=== PATIENT | female | born 1950 ===

== ENCOUNTER 2018-07-15 09:46 | Outpatient (REF) | payer OTHER, SELFPAY ==
[2018-07-15 19:46] LABS: Bilirubin Negative (Negative); Blood Negative (Negative); Clarity Clear; Glucose Negative (Negative); HCT 46.7 % (36.0-46.0); HGB 15.8 g/dL (12.0-15.5); Ketones Negative (Negative); Leukocyte Esterase Negative (Negative); Mean Corp. HGB Concentration 33.8 g/dL (32.0-36.0); Mean Corpuscular Hemoglobin 33.6 pg (27.0-33.0); Mean Corpuscular Volume 99.4 fL (80-95); Mean Platelet Volume 10.6 fL (8.0-11.0); Nitrite Negative (Negative); Platelet Count 258 x1000/uL (130-400); RBC Distribution Width 13.3 % (11.7-14.6); Specific Gravity 1.015 (1.005-1.025); Urobilinogen 0.2 EU/dL (Up TO 0.2); White Blood Cell Count 6.21 k/cumm (4.4-10.8); pH 6.5 (5-8)
[2018-07-15 20:05] LABS: ALT 25 U/L (12-78); AST 25 U/L (15-37); Glucose 83 mg/dL (70-100); TSH 1.23 uIU/mL (0.358-3.74)
[2018-07-16 17:48] LABS: Cholesterol 210 mg/dL (50-200); HDL Cholesterol 104 mg/dL (40-60); LDL CHOLESTEROL 86 mg/dL (<100); Triglyceride 64 mg/dL (30-150); Vitamin B12 254 pg/mL (193-986)
[2018-07-17 10:09] LABS: Folate 10.9 ng/ml
== END 2018-07-15 10:06 ==
LOC: NCHCN 09:46
PROVIDERS: PCP Nurse Practitioner Family; Visit Provider Nurse Practitioner Family
DX: R53.83 Other fatigue (principal); R68.89 Other general symptoms and signs; F17.200 Nicotine dependence, unspecified, uncomplicated
CPT/HCPCS: 80061; 82947; 83721; 85027; 81003; 82607; 82746; 84443; 84450; 84460

== ENCOUNTER 2020-04-21 20:42 | Outpatient (REF) | payer OTHER, SELFPAY ==
[2020-04-27 01:49] LABS: SARS-CoV-2 RNA Undetected (Undetected); SARS-CoV-2 Specimen Source Nasal
== END 2020-04-21 21:02 ==
LOC: NCHCN 20:42
PROVIDERS: PCP Nurse Practitioner Family; Visit Provider Nurse Practitioner Family
DX: Z20.828 Contact with and (suspected) exposure to other viral communicable diseases (principal)
CPT/HCPCS: U0003

== ENCOUNTER 2021-02-08 12:32 | Outpatient (REF) | payer OTHER, SELFPAY ==
[2021-02-10 17:33] LABS: COVID-19 RT-PCR UVMMC Result Negative (Negative)
== END 2021-02-08 12:33 | disposition home or self-care (01) ==
LOC: NCHCN 12:32
PROVIDERS: PCP Nurse Practitioner Family; Visit Provider Nurse Practitioner Family
DX: Z20.822 Contact with and (suspected) exposure to COVID-19
CPT/HCPCS: U0003

== ENCOUNTER 2021-12-28 17:14 | Outpatient (REF) | payer OTHER, SELFPAY ==
[2021-12-28 20:22] LABS: Abs Immature Grans 0.03 10^3/uL (0.0-0.06); Absolute Basophil Count 0.03 10^3/uL (0.0-0.2); Absolute Eosinophil Count 0.14 10^3/uL (0.0-0.7); Absolute Lymphocyte Count 1.35 10^3/uL (1.2-3.4); Absolute Monocyte Count 0.76 10^3/uL (0.1-0.8); Absolute Neutrophil Count 5.62 10^3/uL (1.2-6.7); Basophils % 0.4; Eosinophils % 1.8; HCT 43.3 % (36.0-46.0); HGB 14.4 g/dL (11.2-15.7); Immature Grans % 0.4; MCHC 33.3 % (32.0-36.0); MCV 99 fL (80-95); MPV 10.1 fL (8.0-11.0); Monocytes % 9.6; Neutrophils % 70.8; Platelet Count 294 10^3/uL (130-400); RBC 4.37 10^6/uL (3.93-5.22); RDW 12.3 % (11.7-14.6); RDW-SD 45.3 fL; WBC 7.93 10^3/uL (4.4-10.8)
[2021-12-28 21:00] LABS: Anion Gap 10.9 mmol/L (3-11); BUN 11 mg/dL (7-18); CO2 26.1 mmol/L (21.0-32.0); CREATININE 0.8 mg/dL (0.55-1.02); Calcium 9.4 mg/dL (8.5-10.1); Chloride 98 mmol/L (98-107); Glucose 106 mg/dL (74-106); Potassium 5.7 mmol/L (3.5-5.1); Sodium 135 mmol/L (136-145)
== END 2021-12-28 17:15 | disposition home or self-care (01) ==
LOC: NCHCN 17:14
PROVIDERS: PCP Nurse Practitioner Family; Visit Provider Nurse Practitioner Family
DX: R06.02 Shortness of breath (principal); R09.02 Hypoxemia
CPT/HCPCS: 80048; 85025

== ENCOUNTER 2022-01-03 11:37 | Outpatient (REF) | payer OTHER, SELFPAY ==
[2022-01-03 20:32] LABS: Potassium 4.2 mmol/L (3.5-5.1)
== END 2022-01-03 11:38 | disposition home or self-care (01) ==
LOC: NCHCN 11:37
PROVIDERS: PCP Nurse Practitioner Family; Visit Provider Nurse Practitioner Family
DX: E87.5 Hyperkalemia (principal)
CPT/HCPCS: 84132

== ENCOUNTER 2022-03-22 02:44 | Outpatient (CLI) | payer MEDICARE, SELFPAY ==
[2022-03-22] MEDS: Inhaler, Assist Device 1 EACH MC (14:08)
[2022-03-22] MEDS: Albuterol HFA 18 GM 200 PUFF INH IH (14:08)
--- NOTE | 2022-03-23 16:24 | W.PFT ---
Date of service: 03/22/22 Time of Service: 12:58 Pulmonary Function Test Result Requesting Provider Jens Indications: Emphysema Interpretation Spirometry: There is moderate airflow limitation. There is no significant bronchodilator response. Lung Volumes: There is evidence of hyperinflation and air trapping Diffusion Capacity: There is a reduced diffusion Airway Pressure: There is increased airways resistance. Impression Moderate airflow obstruction with a reduced diffusion and air trapping. This could represent COPD with emphysema in the correct clinical setting. Clinical Correlation therefore is recommended.
== END 2022-03-22 02:45 | disposition home or self-care (01) ==
LOC: RT 02:44
PROVIDERS: PCP Nurse Practitioner Family; Visit Provider Student in an Organized Health Care Education/Training Program
DX: J43.8 Other emphysema (principal)
CPT/HCPCS: 94060; 94726; 94729

== ENCOUNTER 2022-12-04 21:44 | Outpatient (REF) | payer MEDICARE, SELFPAY ==
[2022-12-04 19:43] LABS: Anion Gap 8.5 mmol/L (3-11); BUN 14 mg/dL (7-18); CO2 27.5 mmol/L (21.0-32.0); CREATININE 0.9 mg/dL (0.55-1.02); Chloride 100 mmol/L (98-107); Estimated GFR 67.92 (mL/min/1.73m2); Glucose 149 mg/dL (74-106); Potassium 4.6 mmol/L (3.5-5.1); Sodium 136 mmol/L (136-145)
== END 2022-12-04 21:45 | disposition home or self-care (01) ==
LOC: NCHCN 21:44
PROVIDERS: PCP Nurse Practitioner Family; Visit Provider Physician Assistant
DX: E87.1 Hypo-osmolality and hyponatremia (principal)
CPT/HCPCS: 80048

== ENCOUNTER 2024-01-22 13:18 | Outpatient (REF) | payer MEDICARE, SELFPAY ==
[2024-01-22 20:56] LABS: ALT 22 U/L (14-59); AST 26 U/L (15-37); Alkaline Phosphatase 71 U/L (46-116); Anion Gap 8.3 mmol/L (3-11); BUN 10 mg/dL (7-18); Bilirubin, Total 0.43 mg/dL (0.2-1.0); CO2 27.7 mmol/L (21.0-32.0); CREATININE 0.9 mg/dL (0.55-1.02); Calcium 9.6 mg/dL (8.5-10.1); Calculated LDL 123 mg/dL (<100); Chloride 97 mmol/L (98-107); Cholesterol 234 mg/dL (<200); Glucose 84 mg/dL (74-106); HDL Cholesterol 99 mg/dL (40-60); Potassium 5.2 mmol/L (3.5-5.1); Sodium 133 mmol/L (136-145); Total Protein 7.8 g/dL (6.4-8.2); Triglyceride 64 mg/dL (<150)
== END 2024-01-22 13:19 | disposition home or self-care (01) ==
LOC: NCHCN 13:18
PROVIDERS: PCP Physician Assistant; Visit Provider Physician Assistant
DX: R79.89 Other specified abnormal findings of blood chemistry (principal); Z13.220 Encounter for screening for lipoid disorders; Z13.228 Encounter for screening for other metabolic disorders
CPT/HCPCS: 80053; 80061

== ENCOUNTER 2024-02-20 13:06 | Outpatient (REF) | payer MEDICARE, SELFPAY ==
[2024-02-20 20:11] LABS: Anion Gap 8.7 mmol/L (3-11); BUN 11 mg/dL (7-18); CO2 27.3 mmol/L (21.0-32.0); CREATININE 0.8 mg/dL (0.55-1.02); Calcium 9.5 mg/dL (8.5-10.1); Chloride 97 mmol/L (98-107); Estimated GFR 77.75 (mL/min/1.73m2); Glucose 95 mg/dL (74-106); Potassium 4.9 mmol/L (3.5-5.1); Sodium 133 mmol/L (136-145)
== END 2024-02-20 13:07 | disposition home or self-care (01) ==
LOC: NCHCN 13:06
PROVIDERS: PCP Physician Assistant; Visit Provider Physician Assistant
DX: E87.1 Hypo-osmolality and hyponatremia (principal)
CPT/HCPCS: 80048